=== PATIENT | female | born 1945 | race Caucasian/White ===

== ENCOUNTER 2016-10-22 15:53 | Outpatient (CLI) | payer MEDICARE ==
--- NOTE | 2016-10-22 17:05 | DIAGNOSTIC IMAGING REPORT ---
PROCEDURE: XR ANKLE 1 OR 2 VIEWS - RIGHT INDICATION: PAIN TECHNIQUE: Two views. COMPARISON: None. FINDINGS: Osseous structures and joint spaces are normal. No evidence of osteolysis or osteomyelitis. Metallic foreign bodies are present in the soft tissues just medial to the distal tibia IMPRESSION: 1. Normal osseous structures no evidence of osteolysis or osteomyelitis
== END 2016-10-22 23:00 | disposition home or self-care (01) ==
LOC: LAB SRH 15:53
DX: L97.309 Non-pressure chronic ulcer of unspecified ankle with unspecified severity (principal); G89.29 Other chronic pain; E11.9 Type 2 diabetes mellitus without complications

== ENCOUNTER 2016-10-26 13:15 | Outpatient (CLI) | payer MEDICARE ==
--- NOTE | 2016-10-26 17:12 | DIAGNOSTIC IMAGING REPORT ---
PROCEDURE: US ART LOWER EXT WITH JUAN-B/L INDICATION: ANKLE ULCER;DIABETIC TECHNIQUE: Preexercise ABIs were performed. The patient was exercised ( 25 toe-ups) and postexercise ABIs were repeated followed by color Doppler duplex imaging of the lower extremities. COMPARISON: None. FINDINGS: RIGHT LOWER EXTREMITY: ABIs: Resting ABIs: Posterior tibial 0.56 and dorsalis pedis 0.74. Post exercise ABIs: Posterior tibial 0.40, dorsalis pedis is not identified. VESSELS: Moderate to severe plaque formation. Biphasic wave form from the external iliac artery to the distal SFA and monophasic wave form distally to the ankle. RIGHT LOWER EXTREMITY PEAK SYSTOLIC VELOCITIES: External iliac: 95 cm/second. Common femoral artery: 103 cm/second. Profunda femoral artery: 64 cm/second. Proximal superficial femoral artery: 52 cm/second. Mid superficial femoral artery: 318 cm/second. Distal superficial femoral artery: 46 cm/second. Popliteal artery: 37 cm/second. Proximal anterior tibial artery: 17 cm/second. Distal posterior tibial artery: 21 cm/second. Dorsalis pedis artery: 12th cm/second. LEFT LOWER EXTREMITY: ABIs: Resting ABIs: Posterior tibial 0.71 and dorsalis pedis 0.61. Post exercise ABIs: Posterior tibial 0.31 and dorsalis pedis 0.37. VESSELS: Severe plaque formation of the CF a with high-grade stenosis. Biphasic wave form of the external iliac artery with monophasic wave form distally to the ankle. LEFT LOWER EXTREMITY PEAK SYSTOLIC VELOCITIES: External iliac: 64 cm/second. Common femoral artery: 390 cm/second. Profunda femoral artery: 130 cm/second. Proximal superficial femoral artery: 36 cm/second. Mid superficial femoral artery: 39 cm/second. Distal superficial femoral artery: 43 cm/second. Popliteal artery: 33 cm/second. Proximal posterior tibial artery: 23 cm/second. Proximal anterior tibial artery: 17 cm/second. Distal posterior tibial artery: 15 cm/second. Dorsalis pedis artery: 20 cm/second. IMPRESSION: 1. Right lower extremity: Moderate resting and severe postexercise arterial insufficiency. Moderately severe plaque formation with high-grade stenosis of the mid SFA. 2. Left lower extremity: Moderate resting and severe postexercise arterial insufficiency. Severe plaque formation of the common femoral artery with high- grade stenosis.
== END 2016-10-26 23:00 ==
LOC: US SRH 13:15
DX: I70.203 Unspecified atherosclerosis of native arteries of extremities, bilateral legs (principal)